=== PATIENT | female | born 1985 | race American Indian/Alaskan Native ===

== ENCOUNTER 2017-05-06 23:48 | Emergency (ER) | payer OTHER ==
[2017-05-07 00:07] VITALS: BP 149/106
[2017-05-07] MEDS ORDERED: TYLENOL #3 PO ONE (00:41)
[2017-05-07] MEDS ORDERED: TYLENOL #3 ONE (00:43)
[2017-05-07] MEDS ORDERED: XYLOCAINE 1% 20 mL INFILTRATI NR (02:30)
--- NOTE | 2017-05-07 02:30 | Emergency Department Report ---
ED Laceration [facility] Chief Complaint: Extremity Injury, Lower Stated Complaint: LAC TO KNEE Time Seen by Provider: 05/07/17 02:26 Occurred When: Yesterday Location: Lower Extremity (left knee) Severity: mild Tetanus Status: Up to Date (5 years ago) Laceration Symptoms: Yes Pain, No Foreign Body Sensation, No Numbness, No Weakness Other History: Patient states she was in the shower and she fell and hit her leg into town wall just broke and there cause of laceration to her left knee. Patient states this happened about 45 minutes prior to coming ED. ED Review of Systems ROS: Stated complaint: LAC TO KNEE Other details as noted in HPI Constitutional: denies: chills, fever Eyes: denies: eye pain, eye discharge, vision change ENT: denies: ear pain, throat pain Respiratory: denies: cough, shortness of breath, wheezing Cardiovascular: denies: chest pain, palpitations Endocrine: no symptoms reported Gastrointestinal: denies: abdominal pain, nausea, diarrhea Genitourinary: denies: urgency, dysuria, discharge Musculoskeletal: denies: back pain, joint swelling, arthralgia Skin: denies: rash, lesions Neurological: denies: headache, weakness, paresthesias Psychiatric: denies: anxiety, depression Hematological/Lymphatic: denies: easy bleeding, easy bruising ED Past Medical Hx - Past Medical History Previous Medical History?: Yes Hx Hypertension: Yes - Surgical History Past Surgical History?: No - Social History Smoking Status: Current Every Day Smoker Substance Use Type: Alcohol, Marijuana - Medications Home Medications: Home Medications Medication Instructions Recorded Confirmed Last Taken Type HYDROcodone/APAP 10-325 [[place] 1 each PO Q6HR PRN #10 tablet 01/09/15 Unknown Rx 10/325] Lansoprazole (Nf) [Prevacid (Nf)] 30 mg PO QDAY #15 capsule 01/09/15 Unknown Rx Acetaminophen/Codeine [Tylenol 1 tab PO Q6H PRN #10 tab 05/07/17 Unknown Rx /Codeine # 3 tab] Cephalexin [Keflex] 500 mg PO BID #10 capsule 05/07/17 Unknown Rx Ibuprofen [Motrin] 800 mg PO Q8HR PRN #30 tablet 05/07/17 Unknown Rx Laceration Physical Exam - Exam General: Vital signs noted. No distress. Alert and acting appropriately. KNEE: joint intact, Full ROM, no swelling, Wound Length (cm): 5 Laceration Location: Lower Extremity Full Body Front + Back: 1 - 4-5 cm wide laceration to knee Laceration Exam: Yes Normal Distal CMS, No Foreign Body, No Exposed Tendon, Vessel, or Nerve, No Tendon Injury ED Course Vital Signs 05/07/17 00:03 Temperature 98.6 F Pulse Rate 82 Respiratory 20 Rate Blood Pressure 149/106 O2 Sat by Pulse 98 Oximetry - Laceration /Wound Repair Left Anterior Medial Knee Wound Location: lower extremity Wound Length (cm): 5 Wound's Depth, Shape: superficial, linear Wound Explored: no foreign body removed Irrigated w/ Saline (ccs): 500 Betadine Prep?: Yes Anesthesia: 1% Lidocaine Volume Anesthetic (ccs): 6 Wound Repaired With: sutures Suture Size/Type: 4:0 Number of Sutures: 4 Layer Closure?: No Sterile Dressing Applied?: Yes ED Medical Decision Making - Medical Decision Making Ed Course: 31-year-old female presents with left knee laceration The 5cm laceration wound was prepped and draped in sterile fashion. Anesthesia was achieved with 6mL of 1% lidocaine. The wound was irrigated with 500cc NS and explored. There were no foreign bodies The wound was reapproximated in 1 layer with 4 mattress sutures suing with 4-0 monofilament sutures in the dermis with interrupted mattress sutures percutaneously. There was excellent reapproximation of the wound edges. The patient tolerated the procedure without complication I discussed the patient to return in 10-14 days for suture removal. Critical care attestation.: If time is entered above; I have spent that time in minutes in the direct care of this critically ill patient, excluding procedure time. ED Disposition Clinical Impression: Laceration of left knee without complication Qualifiers: Encounter type: initial encounter Qualified Code(s): S81.012A - Laceration without foreign body, left knee, initial encounter Disposition: - TO HOME OR SELFCARE Is pt being admited?: No Does the pt Need Aspirin: No Condition: Stable Instructions: Suture Care (ED), Laceration (ED) Additional Instructions: Make sure to follow up with the primary care physician as discussed. Take all your medications as you've been prescribed. If you have any worsening symptoms or develop new symptoms please return to ED immediately. Return to ED in 10-14 days to have sutures removed. Prescriptions: Acetaminophen/Codeine [Tylenol /Codeine # 3 tab] 1 tab PO Q6H PRN #10 tab PRN Reason: Pain Cephalexin [Keflex] 500 mg PO BID #10 capsule Ibuprofen [Motrin] 800 mg PO Q8HR PRN #30 tablet PRN Reason: Pain Referrals: PRIMARY CARE, [Primary Care Provider] - 3-5 Days [facility] [Outside] - 3-5 Days [facility] [Outside] - 3-[address] [facility] [Outside] - 3-5 Days Forms: Accompanied Note, Work/School Release Form
[2017-05-07] MEDS ORDERED: XYLOCAINE 1% 20 mL INFILTRATI ONE (03:00)
[2017-05-07] MEDS ORDERED: TRIPLE ANTIBIOTIC TP ONE ×2 (03:00→03:40)
== END 2017-05-07 04:21 | disposition home or self-care (01) ==
LOC: ED 23:48
DX: S81.012A Laceration without foreign body, left knee, initial encounter (principal); F17.200 Nicotine dependence, unspecified, uncomplicated; F12.10 Cannabis abuse, uncomplicated; W18.30XA Fall on same level, unspecified, initial encounter; Y93.89 Activity, other specified; Y92.89 Other specified places as the place of occurrence of the external cause; Y99.8 Other external cause status
CPT/HCPCS: A6250

== ENCOUNTER 2017-09-27 17:49 | Emergency (ER) | payer OTHER ==
[2017-09-27] MEDS ORDERED: TYLENOL ONE (20:47)
[2017-09-27] MEDS ORDERED: TYLENOL PO ONE (20:53)
--- NOTE | 2017-09-27 20:53 | Emergency Department Report ---
ED Headache HPI - General Chief Complaint: Headache Stated Complaint: SEVERE HEADACHE/SEEING SPOTS Time Seen by Provider: 09/27/17 20:53 Source: patient - History of Present Illness Initial Comments: This is 32-year-old female here for headache that started in the morning. She said that she is seeing flashing light in her left eye and pain is located to the left side of her face and it feels caustic and throbbing. Denies any nausea or vomiting. She says she has light sensitivity. Denies any dizziness or blurred vision. Pain is 9 out of 10 to her left side of her head. She says she took [id number] medication for her headache but it didn't help. Patient had similar headache in the past which she says she has migraine but never had a CT scan and has never been seen by a neurologist. She states that she had a headache in the past that she was referred she did have any money to follow up. Denies any fever or chills. Denies any trauma. Denies any neck pain or stiffness. Denies any numbness or tingling to her extremities. He makes pain better and but worse with light. Timing/Duration: constant, increasing, other (started this morning) Quality: severe, constant, throbbing Head Injury Location: parietal Recent Head Trauma: frequent headaches Modifying Factors: improves with: exposure to light Associated Symptoms: denies: confusion, fatigue, facial pain, fever/chills, flushing, loss of consciousness, nausea/vomiting, nasal congestion, nasal drainage, numbness in legs/feet, rash, seizures, sinus infection, stiff neck, vision changes, weakness Allergies/Adverse Reactions: Allergies No Known Allergies Allergy (Verified 09/27/17 17:58) Home Medications: Ambulatory Orders HYDROcodone/APAP 10-325 [[place] 10/325] 1 each PO Q6HR PRN #10 tablet 01/09/15 Lansoprazole (Nf) [Prevacid (Nf)] 30 mg PO QDAY #15 capsule 01/09/15 Acetaminophen/Codeine [Tylenol /Codeine # 3 tab] 1 tab PO Q6H PRN #10 tab Cephalexin [Keflex] 500 mg PO BID #10 capsule 05/07/17 Ibuprofen [Motrin] 800 mg PO Q8HR PRN #30 tablet 05/07/17 Butalb/Acetaminophen/Caffeine [Fioricet 50-300-40 mg CAP] 1 cap PO Q6HR PRN #16 cap 09/27/17 ED Review of Systems ROS: Stated complaint: SEVERE HEADACHE/SEEING SPOTS Other details as noted in HPI Constitutional: denies: chills, fever Eyes: denies: eye pain, eye discharge, vision change ENT: denies: ear pain, throat pain, congestion Respiratory: denies: cough, shortness of breath, SOB with exertion, SOB at rest , stridor, wheezing Cardiovascular: denies: chest pain, palpitations, edema, syncope Gastrointestinal: denies: abdominal pain, nausea, vomiting, diarrhea, constipation Genitourinary: denies: urgency, dysuria, frequency, hematuria, discharge Musculoskeletal: denies: back pain, joint swelling, arthralgia, myalgia Skin: denies: rash, lesions Neurological: headache. denies: weakness, numbness, paresthesias, confusion, abnormal gait, vertigo ED Past Medical Hx - Past Medical History Previous Medical History?: Yes Hx Hypertension: Yes - Surgical History Past Surgical History?: No - Family History Family history: hypertension - Social History Smoking Status: Current Every Day Smoker Substance Use Type: Alcohol, Marijuana - Medications Home Medications: Home Medications Medication Instructions Recorded Confirmed Last Taken Type HYDROcodone/APAP 10-325 [[place] 1 each PO Q6HR PRN #10 tablet 01/09/15 Unknown Rx 10/325] Lansoprazole (Nf) [Prevacid (Nf)] 30 mg PO QDAY #15 capsule 01/09/15 Unknown Rx Acetaminophen/Codeine [Tylenol 1 tab PO Q6H PRN #10 tab 05/07/17 Unknown Rx /Codeine # 3 tab] Cephalexin [Keflex] 500 mg PO BID #10 capsule 05/07/17 Unknown Rx Ibuprofen [Motrin] 800 mg PO Q8HR PRN #30 tablet 05/07/17 Unknown Rx Butalb/Acetaminophen/Caffeine 1 cap PO Q6HR PRN #16 cap 09/27/17 Unknown Rx [Fioricet 50-300-40 mg CAP] ED Physical Exam - General Limitations: No Limitations General appearance: alert, in no apparent distress - Head Head exam: Present: atraumatic, normocephalic, normal inspection, other (normal exam) - Eye Eye exam: Present: normal appearance, PERRL, EOMI. Absent: nystagmus, periorbital swelling, periorbital tenderness Pupils: Present: normal accommodation - ENT ENT exam: Present: normal exam, normal orophraynx, mucous membranes moist, TM's normal bilaterally, normal external ear exam - Neck Neck exam: Present: normal inspection, full ROM, other (no C-spine tenderness). Absent: tenderness, meningismus, lymphadenopathy, thyromegaly - Respiratory Respiratory exam: Present: normal lung sounds bilaterally. Absent: respiratory distress, wheezes, rales, rhonchi, stridor, chest wall tenderness - Cardiovascular Cardiovascular Exam: Present: regular rate, normal rhythm, normal heart sounds. Absent: systolic murmur, diastolic murmur - GI/Abdominal GI/Abdominal exam: Present: soft, normal bowel sounds. Absent: distended, tenderness, guarding, rebound, rigid, organomegaly, mass, bruit, pulsatile mass , hernia - Extremities Exam Extremities exam: Present: normal inspection, full ROM, normal capillary refill , other (no clubbing, cyanosis or edema. +2 pulses to all extremities and no neurovascular compromise). Absent: tenderness, pedal edema, joint swelling, calf tenderness - Back Exam Back exam: Present: normal inspection, full ROM, other (ambulates without any difficulties). Absent: tenderness, CVA tenderness (R), CVA tenderness (L), muscle spasm, paraspinal tenderness, vertebral tenderness, rash noted - Neurological Exam Neurological exam: Present: alert, oriented X3, normal gait, reflexes normal. Absent: motor sensory deficit - Expanded Neurological Exam Expanded Neurological exam: Absent: innattentive, memory loss-remote event, memory loss- recent event, ataxia, receptive aphasia, expressive aphasia, total aphasia, tremor, protecting the airway Patient oriented to: Present: person, place, time Speech: Present: fluid speech Cranial nerves: EOM's Intact: Normal, Gag Reflex: Normal, Tongue Deviation: Normal, Nystagmus: Normal, Facial Sensation: Normal Cerebellar function: [place]: Normal Upper motor neuron: Pronator Drift: Normal, Sensory Extinction: Normal Sensory exam: Upper Extremity Light Touch: Normal, Upper Extremity Pin Prick: Normal, Upper Extremity Temperature: Normal, UE 2 Point Discrimination: Normal, Lower Extremity Light Touch: Normal, Lower Extremity Pin Prick: Normal, Lower Extremity Temperature: Normal, LE 2 Point Discrimination: Normal Motor strength exam: RUE: 5, LUE: 5, RLE: 5, LLE: 5 DTR: bicep (R): 2+, bicep (L): 2+, tricep (R): 2+, tricep (L): 2+, knee (R): 2+ , knee (L): 2+, ankle (R): 2+, ankle (L): 2+ Best Eye Response ([place]): (4) open spontaneously Best Motor Response ([place]): (6) obeys commands Best Verbal Response ([place]): (5) oriented Donnell Total: 15 - Psychiatric Psychiatric exam: Present: normal affect, normal mood - Skin Skin exam: Present: warm, dry, intact, normal color. Absent: rash ED Course Vital Signs 09/27/17 09/27/17 09/27/17 17:58 20:56 22:52 Temperature 98.8 F Pulse Rate 99 H Respiratory 18 20 18 Rate Blood Pressure 152/91 Blood Pressure [Left] O2 Sat by Pulse 98 Oximetry 09/27/17 23:12 Temperature Pulse Rate 97 H Respiratory 18 Rate Blood Pressure Blood Pressure 150/93 [Left] O2 Sat by Pulse 98 Oximetry - Reevaluation(s) Reevaluation #1: 09/27/17 22:36 Patient given Tylenol 975 mg for headache which did not relieve her headache. CT scan normal exam therefore she was given Toradol 60 mg IM, Decadron 10 mg IM and Reglan 10 mg IM. I will reevaluate but there is no change in neurological status from previous exam. Reevaluation #2: 09/27/17 23:19 Pain is better per patient. No change in neurological status ED Medical Decision Making - Radiology Data Radiology results: report reviewed CT scan of the head was dictated by radiologist and please refer to results below. Patient: SINAN LEWIS MR#: [id number] : 1985 Acct:[id number] Age/Sex: 32 / F ADM Date: 09/27/17 Loc: ED Attending Dr: Ordering Physician: REFUGIO MARINO Date of Service: 09/27/17 Procedure(s): CT head/brain wo con Accession Number(s): [id number] cc: REFUGIO MARINO FINAL REPORT PROCEDURE: CT HEAD/BRAIN WO CON TECHNIQUE: Computerized tomography of the head was performed without contrast material. HISTORY: headache with dizziness COMPARISON: No prior studies are available for comparison. FINDINGS: Skull and scalp: Normal. Paranasal sinuses: Normal. Ventricles and subarachnoid spaces: Normal. Cerebrum: No evidence of hemorrhage, acute infarction or mass . Cerebellum and brainstem: No evidence of hemorrhage, acute infarction or mass. Vasculature: Normal. Comments: None. IMPRESSION: Normal Examination Transcribed By: [facility] Dictated By: DAY UMAÑA Electronically Authenticated By: DAY UMAÑA Signed Date/Time: 09/27/172138 DD/ 38 TD/TT: 09/27/172138 - Medical Decision Making ED course His is a 32-year-old female here with headaches that then occurring frequently and was referred to neurologist in the past but did not go. She has never had a CT scan of her head. Her only complaint is headache with sensitivity to light and pain is located in the left facial area that started this morning. Cnvv-pza-pryfonm medication is not helping. She is here to be evaluated. She was seen and evaluated by myself and she is neurologically intact with normal neck exam. She is given pain medication emergency room which relieved her headache. Patient has a history of high blood pressure and at one point she was on HCTZ but she said that she hasn't taken that in years due to lack of follow-up. Her blood pressure in triage is 152/91. I discussed with her that she needs to follow up with primary care and I will refer her to [facility] [place] regarding headaches and management of blood pressure. CT scan of the head without contrast dictated by radiologist and show no acute intracranial or extracranial findings. I also reviewed the radiology report Results of x-ray was discussed with the patient and she voiced understanding and and I told her that she needs to follow up in a neurologist regarding chronic headaches. A/P 1: Headache not intractable-patient given Tylenol 975 mg emergency room which did not relieve her headache. CT scan normal findings she was given Toradol 60 mg IM, Reglan 10 mg IM and Decadron 10 mg IM which relieved her headache. Pain has better and she says she is feeling better. Patient will be referred to neurologist 2: High blood pressure-blood pressure is 152/91 and I discussed the patient that she needs to follow up with [facility] for primary care visit to manage her chronic hypertension 3Morbid obesity: Weight management instructed. Patient discharged home a prescription for Fioricet for headache. Patient educated on obesity and management, hypertension, low sodium diet, DASH diet, effects of chronic high blood pressure on organs, headaches, medication, hydration, diagnosis and she voiced understanding. Patient discharged home in stable condition to follow up with primary care physician and neurologist in 2-3 days. Vital signs are stable she is afebrile. Patient is nontoxic and voiced understanding of need to follow-up - Differential Diagnosis ICH, aneurysm, headache of unknown etiology, sinusitis Critical care attestation.: If time is entered above; I have spent that time in minutes in the direct care of this critically ill patient, excluding procedure time. ED Disposition Clinical Impression: Elevated blood pressure reading with diagnosis of hypertension, Morbid obesity with BMI of 40.0-44.9, adult Headache Qualifiers: Headache type: unspecified Headache chronicity pattern: episodic headache Intractability: not intractable Qualified Code(s): R51 - Headache Disposition: DC-01 TO HOME OR SELFCARE Is pt being admited?: No Does the pt Need Aspirin: No Condition: Stable Instructions: Acute Headache (ED), Obesity (ED), DASH Eating Plan (ED), Hypertension (ED) Additional Instructions: Please follow-up with [facility] to manage your chronic high blood pressure. Please follow-up with neurologist for chronic headache Take medication as prescribed to manage her headache. Keep a log of your blood pressure and take to his [facility] with view for evaluation by primary care doctor Prescriptions: Butalb/Acetaminophen/Caffeine [Fioricet 50-300-40 mg CAP] 1 cap PO Q6HR PRN #16 cap PRN Reason: headache Referrals: [facility] [Outside] - 2-3 Days PRIMARY CARE, [Primary Care Provider] - 2-3 Days FIONA CAPELLAN MD [Staff Physician] - 2-3 Days Forms: Work/School Release Form(ED)
--- NOTE | 2017-09-27 21:48 | Cat Scan Report ---
FINAL REPORT PROCEDURE: CT HEAD/BRAIN WO CON TECHNIQUE: Computerized tomography of the head was performed without contrast material. HISTORY: headache with dizziness COMPARISON: No prior studies are available for comparison. FINDINGS: Skull and scalp: Normal. Paranasal sinuses: Normal. Ventricles and subarachnoid spaces: Normal. Cerebrum: No evidence of hemorrhage, acute infarction or mass . Cerebellum and brainstem: No evidence of hemorrhage, acute infarction or mass. Vasculature: Normal. Comments: None. IMPRESSION: Normal Examination
[2017-09-27] MEDS ORDERED: REGLAN IM ONE (22:32)
[2017-09-27] MEDS ORDERED: TORADOL IM ONE (22:32)
[2017-09-27] MEDS ORDERED: DECADRON IM ONE (22:32)
[2017-09-27 23:12] VITALS: BP 150/93
== END 2017-09-27 23:35 | disposition home or self-care (01) ==
LOC: ED 17:49
DX: I10 Essential (primary) hypertension (principal); G43.909 Migraine, unspecified, not intractable, without status migrainosus; E66.01 Morbid (severe) obesity due to excess calories; F17.200 Nicotine dependence, unspecified, uncomplicated; F12.90 Cannabis use, unspecified, uncomplicated; Z68.41 Body mass index [BMI] 40.0-44.9, adult
CPT/HCPCS: 70450; 96372; 99283; J1100; J1885; J2765